=== PATIENT | male | born 1975 | race Caucasian/White ===

== ENCOUNTER → 2020-11-29 | Outpatient (CLI) | payer BC | LOC: KOH-I 14:56 | DX: S09.90XA Unspecified injury of head, initial encounter (principal); T14.8XXA Other injury of unspecified body region, initial encounter | CPT/HCPCS: 71046 ==

== ENCOUNTER → 2020-12-02 | Outpatient (CLI) | payer BC | LOC: EMI 14:25 → KOH-I 14:45 | DX: S09.90XA Unspecified injury of head, initial encounter (principal); H91.91 Unspecified hearing loss, right ear; S00.03XA Contusion of scalp, initial encounter; G93.89 Other specified disorders of brain; H70.11 Chronic mastoiditis, right ear | CPT/HCPCS: 70551 ==